=== PATIENT | female | born 1965 | race Caucasian/White ===

== ENCOUNTER 2022-11-07 13:22 | Emergency (ER) | payer OTHER ==
[~2022-11-07] VITALS: Ht 157.5 cm; Wt 59.0 kg
--- NOTE | 2022-11-07 13:26 | NUR ---
pt ambulated to bed 04
[2022-11-07 13:32] VITALS: BP 136/84
--- NOTE | 2022-11-07 13:40 | NUR ---
57/F WALKED IN C/O B/L FLANK PAIN X 1 MONTH. PT REPORTS BEING SEEN AT [facility] AND WAS TOLD SHE HAS KIDNEY INFECTION AND WAS PX ATBX. PT REPORTS PAIN GETTING WORSE. DENIES DYSURIA OR HEMATURIA. PMH: DENIES
[2022-11-07 13:55] LABS: APPEARANCE,URINE CLEAR (CLEAR); BILIRUBIN,URINE NEGATIVE (NEGATIVE); BLOOD, URINE NEGATIVE (NEGATIVE); COLOR,URINE YELLOW (YELLOW); LEUKOCYTE ESTERASE ,URINE NEGATIVE (NEGATIVE); NITRITE, URINE NEGATIVE (NEGATIVE); PH,URINE 6.5 (5.0-9.0); UGLUCOSE NEGATIVE (NEGATIVE)
--- NOTE | 2022-11-07 14:05 | NUR ---
Patient discharged with v/s stable. Written and verbal after care instructions given and explained. Patient verbalized understanding. Ambulatory with steady gait. All questions addressed prior to discharge. Advised to follow up with PMD.
== END 2022-11-07 14:05 | disposition home or self-care (01) ==
LOC: MED 13:22
DX: R10.9 Unspecified abdominal pain (principal)
CPT/HCPCS: 81003; 99283